=== PATIENT | male | born 1995 | race Caucasian/White ===

== ENCOUNTER 2025-02-11 09:10 | Emergency (ER) | payer OTHER, SELFPAY ==
[2025-02-11 09:32] VITALS: BP 147/77; PULSE 74; RESP 16; TEMP 36.5; O2SAT 98; BMI 34.0
== END 2025-02-11 11:28 | disposition left against medical advice (07) ==
PROVIDERS: Emergency Provider Physician Assistant
CPT/HCPCS: 99281